=== PATIENT | male | born 1945 | race Caucasian/White ===

== ENCOUNTER 2017-02-20 06:34 | Day surgery (SDC) | payer OTHER, MEDICARE ==
[2017-02-20] MEDS ORDERED: NS 1,000 ML IV ONE (06:36)
[2017-02-20] MEDS ORDERED: FAMOTIDINE 20 MG TAB PO ONE (06:36)
[2017-02-20] MEDS ORDERED: diphenhydrAMINE 25 MG CAP PO ONE ×2 (06:36→07:23)
[2017-02-20] MEDS ORDERED: ASPIRIN EC 325 MG TAB PO ONE (06:36)
[2017-02-20] MEDS ORDERED: DIAZEPAM 5 MG TAB PO ONE (06:36)
--- NOTE | 2017-02-20 07:03 | CPEKG ---
Heart Rate: 80 RR Interval: 750 P-R Interval: 148 QRSD Interval: 96 QT Interval: 388 QTC Interval: 448 P [place]: 83 QRS Medina: -61 T Wave [place]: 56 EKG Severity - ABNORMAL ECG - EKG Impression: SINUS RHYTHM EKG Impression: VENTRICULAR TRIGEMINY EKG Impression: LAD, CONSIDER LEFT ANTERIOR FASCICULAR BLOCK EKG Impression: RELATIVELY UNCHANGED IN COMPARISON TO PRIOR FROM 2010 Electronically Signed By: Truman Gray 21-Feb-2017 12:08:55
[2017-02-20 07:21] LABS: % IMMATURE GRANULYOCYTES 0.3 % (0.0-1.1); ABSOLUTE IMMATURE GRANULOCYTES 0.02 10^3/uL (0.00-0.10); ADD DIFF? NO; ADD MORPH? NO; ADD SCAN? NO; ATYPICAL LYMPHOCYTE FLAG 10 (0-99); FRAGMENT RBC FLAG 0 (0-99); HEMATOCRIT 49.5 % (40.0-51.0); HEMOGLOBIN 17.1 g/dL (13.7-17.5); LEFT SHIFT FLG 0 (0-99); LIPEMIA HEMOLYSIS FLAG 90 (0-99); MEAN CELL HEMOGLOBIN 31.4 pg (27.9-34.1); MEAN CELL HEMOGLOBIN CONCENTR. 34.5 g/dL (32.4-36.7); MEAN CELL VOLUME 90.8 fL (81.5-99.8); MEAN PLATELET VOLUME 9.1 fL (8.7-11.7); PLATELET CLUMPS FLAG 20 (0-99); PLATELET COUNT 141 10^3/uL (150-400); RED BLOOD CELL COUNT 5.45 10^6/uL (4.40-6.38); RED CELL DISTRIBUTION WIDTH 15.1 % (11.5-15.2)
[2017-02-20] MEDS ORDERED: DIAZEPAM 5 MG TAB ONE (07:23)
[2017-02-20] MEDS ORDERED: FAMOTIDINE 20 MG TAB ONE (07:23)
[2017-02-20] MEDS ORDERED: ASPIRIN EC 81 MG TAB PO ONE (07:24)
[2017-02-20] MEDS ORDERED: LIDOCAINE 1% 300 MG/30 ML SDV ONE ×2 (07:33→09:51)
[2017-02-20] MEDS ORDERED: fentaNYL 100 MCG/2 ML INJ ONE ×2 (07:33→09:51)
[2017-02-20] MEDS ORDERED: MIDAZOLAM 2 MG/2 ML VIAL ONE ×2 (07:33→09:51)
[2017-02-20] MEDS ORDERED: IOPAMIDOL (ISOVUE-370) 150 ML BTL IV ONE ×2 (07:33→09:51)
[2017-02-20 07:46] LABS: ANION GAP 11 mEq/L (8-16); CALCIUM 9.9 mg/dL (8.5-10.4); CARBON DIOXIDE 25 mEq/l (22-31); CHLORIDE 103 mEq/L (97-110); CHOLESTEROL 150 mg/dL (140-220); CHOLESTEROL/HDL RATIO 4.05 RATIO (1.00-4.97); CREATININE 1.1 mg/dL (0.7-1.3); GLOMERULAR FILTRATION RATE > 60; GLUCOSE 130 mg/dL (70-100); HIGH DENSITY LIPOPROTEIN 37 mg/dL (40-65); LDL/HDL RATIO 2.27 RATIO (1.00-3.64); LOW DENSITY LIPOPROTEIN 84 mg/dL (80-100); NON-HIGH DENSITY LIPOPROTEIN 113 mg/dL (90-129); POTASSIUM 4.3 mEq/L (3.5-5.2); SODIUM 139 mEq/L (134-144); TRIGLYCERIDE 145 mg/dL (40-150); VERY LOW DENSITY LIPOPROTEINS 29 mg/dL (8-25)
[2017-02-20 07:52] LABS: INR 1.06 (0.83-1.16); PROTIME(PATIENT) 13.7 SEC (12.0-15.0)
[2017-02-20] MEDS ORDERED: ATROPINE SULFATE 1 MG/10 ML SYR IVP PRN (11:25)
[2017-02-20] MEDS ORDERED: HYDROCODONE/APAP 5/325 TAB PO PRN (11:25)
[2017-02-20] MEDS ORDERED: ONDANSETRON 4 MG/2 ML VIAL IVP PRN (11:25)
[2017-02-20] MEDS ORDERED: NITROGLYCERIN 0.4 MG BTL SL PRN (11:25)
[2017-02-20] MEDS ORDERED: OXYCODONE/APAP 5/325 TAB PO PRN (11:25)
--- NOTE | 2017-02-20 11:50 | GPN ---
[f rep st] PROCEDURE NOTE DATE OF PROCEDURE: 02/20/2017 PROCEDURE: 1. Left heart catheterization. 2. Left coronary angiography. 3. Right coronary angiography. 4. Left ventriculogram. 5. Right common femoral artery angiography. INDICATION: The patient is a pleasant 71-year-old gentleman with complaints of increasing dyspnea o n exertion and shortness of breath who had marked symptoms during his exercise treadmill stress test coupled with frequent ventricular ectopy. In the setting of multiple coronary artery disease risk factors, decision was made to pursue left coronary angiography. DESCRIPTION OF PROCEDURE: After informed consent was obtained, the patient was brought to the [facility] catheterization lab where he was prepped and draped in a sterile fashion. Using 1% lidocaine, th e right groin was anesthetized. Using the modified Seldinger technique, a 6-Greek catheter was magdalene jorje into the right common femoral artery without complications. JL4 catheter was used to take image s of the left coronary anatomy in multiple projections. JL4 catheter was exchanged over a guidewire for a JR4 catheter. JR4 catheter was used to take images of the right coronary anatomy in multiple projections. JR4 catheter was exchanged over a guidewire for an angled pigtail catheter. Angled p igtail catheter was used to cross the aortic valve. LVEDP was assessed. Aortic valve gradient was assessed. Left ventriculogram was performed. Angled pigtail catheter was removed over a guidewire without complications. Angiography of the righ t common femoral artery was obtained. FINDINGS: 1. Left main normal size and caliber, bifurcates into the left anterior descending coronary artery and left circumflex artery. There is no evidence of coronary disease within the left main. 2. Left anterior descending has some mild luminal irregularities in the proximal segment. There is a small size first and second diagonal branch with mild luminal irregularities. There is a moderat e size second septal track watchman branch that has 30% ostial stenosis. 3. Circumflex gives rise to a moderate-size first obtuse marginal branch. Some mild luminal irregu larities within the mid circumflex vessel and obtuse marginal branch. 4. Right coronary artery is a dominant vessel. There is 20% narrowing in the proximal RCA and mild luminal irregularities through the remainder of the vessel. It bifurcates into a PDA and PLV branc h with no evidence of coronary disease. Hemodynamics: LVEF demonstrates global hypokinesis with an LVEF of approximately 40%. LVEDP is ceci vated at 20 mmHg. No evidence of aortic valve gradient. Right common femoral artery angiography demonstrates appropriate placement of 6-Greek femoral sheat h above the bifurcation. CONCLUSION: 1. Mild luminal irregularities with no evidence of flow-limiting coronary artery disease. 2. Nonischemic cardiomyopathy with left ventricular ejection fraction of approximately 40% with ceci vated left ventricular end-diastolic pressure of 20 mmHg. PLAN: Patient will go to recovery. The patient will be initiated on heart failure therapy. /[id number]/MODL
== END 2017-02-20 14:20 | disposition home or self-care (01) ==
LOC: FCATH 06:34
PROVIDERS: ATTEND Internal Medicine Cardiovascular Disease
PROC: B2111ZZ Fluoroscopy of Multiple Coronary Arteries using Low Osmolar Contrast (ICD-10-PCS; principal; 2017-02-20)
PROC: 4A023N7 Measurement of Cardiac Sampling and Pressure, Left Heart, Percutaneous Approach (ICD-10-PCS; principal; 2017-02-20)
PROC: B2151ZZ Fluoroscopy of Left Heart using Low Osmolar Contrast (ICD-10-PCS; principal; 2017-02-20)
PROC: B41F1ZZ Fluoroscopy of Right Lower Extremity Arteries using Low Osmolar Contrast (ICD-10-PCS; principal; 2017-02-20)
DX: R06.09 Other forms of dyspnea (principal); I42.9 Cardiomyopathy, unspecified; I49.3 Ventricular premature depolarization; G47.33 Obstructive sleep apnea (adult) (pediatric); J44.9 Chronic obstructive pulmonary disease, unspecified
CPT/HCPCS: C1760; J1644; J2250; J3010; Q9967

== ENCOUNTER → 2017-04-16 | Outpatient (CLI) | payer OTHER, MEDICARE | LOC: FIMAGING 08:59 | PROVIDERS: ATTEND Internal Medicine Pulmonary Disease | DX: J43.2 Centrilobular emphysema (principal); I25.10 Atherosclerotic heart disease of native coronary artery without angina pectoris; Z85.89 Personal history of malignant neoplasm of other organs and systems; Z87.891 Personal history of nicotine dependence ==